=== PATIENT | male | born 1945 | race Two or more races ===

== ENCOUNTER 2024-02-12 13:43 | Emergency (ER) | payer OTHER, SELFPAY ==
[2024-02-12 13:48] VITALS: BP 142/61
[2024-02-12 14:15] LABS: % Basophils 0.4 % (0-2); % Eosinophils 0.1 % (0-6); % Immature Granulocytes 0.5 % (0-0.5); % Lymphocytes 9.5 % (20.5-51.1); % Monocytes 7.6 % (1.7-9.3); % Neutrophils 81.9 % (42.2-75.2); Absolute Basophils 0.1 10^3/uL (0-0.2); Absolute Immature Granulocytes 0.1 10^3/uL (0-0.05); Absolute Lymphocytes 1.2 10^3/uL (1.2-3.4); Absolute Neutrophils 10.6 10^3/uL (1.4-6.5); Hematocrit 42.2 % (39.0-52.0); Mean Corp Hgb Conc. 33.2 g/dL (33.0-37.0); Mean Corpuscular Hgb 28.3 pg (27.0-31.0); Mean Corpuscular Volume 85.3 fL (80.0-94.0); Mean Platelet Volume 9.7 fL (7.4-10.4); Nucleated Red Blood Cells % 0 % (-); Platelet Count 281 10^3/uL (130-400); Red Blood Cell Count 4.95 10^6/uL (4.70-6.10); Red Cell Dist. Width 13.6 % (11.5-14.5); White Blood Cell Count 12.9 10^3/uL (4.8-10.8)
[2024-02-12 14:39] LABS: AST (SGOT) 30 U/L (17-59); Albumin 4.4 g/dl (3.5-5.0); Alkaline Phosphatase 75 U/L (38-126); Blood Urea Nitrogen 40 mg/dl (9-20); Calcium 9.7 mg/dl (8.4-10.2); Carbon Dioxide 19 mmol/L (22-30); Chloride 101 mmol/L (98-107); Glucose 230 mg/dl (70-99); Lipase 81 U/L (23-300); Sodium 138 mmol/L (135-145); Total Bilirubin 0.8 mg/dl (0.2-1.3); Total Protein 7.5 g/dl (6.3-8.2); eGFR 47.06
[2024-02-12 15:16] LABS: ALT (SGPT) 39 U/L (0-50)
[2024-02-12 15:34] VITALS: BMI 25.9
[2024-02-12 15:35] VITALS: BP 136/62
[2024-02-12] MEDS: NSS 1000 IV (15:50)
[2024-02-12 16:00] VITALS: BP 125/59
--- NOTE | 2024-02-12 16:19 | ED.GENMED ---
History of Present Illness
General
Chief Complaint: Weakness
Time Seen by Provider: 02/12/24 14:51
History of Present Illness
History of Present Illness:
78-year-old male with history of hypertension and hyperlipidemia presents to the emergency department for evaluation of weakness and slurred speech that began this morning. According to his daughter he was vomiting yesterday when he fell in the
bathroom, there was no reported loss of consciousness. He did have some stool incontinence and continued to vomit throughout the night. Went to his primary care physician this morning and was noted to have slurred speech thus was deferred to the
emergency department. According to his daughter his speech has resolved here and he appears to look much better. Patient denies any abdominal pain
Review of Systems
Review of Systems
Allergies reviewed?: Yes
All Other Systems: ROS reviewed and negative except as documented in HPI and ROS
Phy Exam
Physical Exam
Physical Exam:
GEN: Well appearing, NAD, WDWN
HEENT: Oral mucosa moist, no scleral icterus
Cardiac: Regular rate
Lung: No respiratory distress, no tachypnea
Abdomen: Soft, nontender
MSK: No gross deformity or injuries
Skin: Good color, no pallor or jaundice, no rashes
Neuro: AO x3, moves all extremities freely. Oriented per daughter as the patient does not speak Qatari. Cranial nerves II through XII grossly intact
Psych: Calm, cooperative
Course
Orders/Labs/Results
Orders:
Orders
02/12/24 13:53
Electrocardiogram (*1) Urgent
Reason for Study: Fatigue / Weakness
CT Head W/o Iv Contrast Urgent
Comment:
Reason For Exam: fall, slurred speech
02/12/24 13:54
EKG- Treatment ONCE
02/12/24 14:05
Complete Blood Count/With Diff Urgent
Comprehensive Metabolic Panel Urgent
Lipase Urgent
02/12/24 15:49
0.9% Sodium Chloride 1000 ml [Nss] 1,000 ml IV BOLUS
Abnormal Lab Results
02/12/24
14:05
WBC 12.9 H 10^3/uL
(4.8-10.8)
Abs Immat Gran (auto) 0.1 H 10^3/uL
(0-0.05)
Absolute Neuts (auto) 10.6 H 10^3/uL
(1.4-6.5)
Absolute Monos (auto) 1.0 H 10^3/uL
(0.1-0.6)
Neutrophils % 81.9 H %
(42.2-75.2)
Lymphocytes % 9.5 L %
(20.5-51.1)
Carbon Dioxide 19 L mmol/L
(22-30)
BUN 40 H mg/dl
(9-20)
Creatinine 1.5 H mg/dL
(0.7-1.3)
Glucose 230 H mg/dl
(70-99)
02/12/24 14:05
02/12/24 14:05
Vital Signs
Initial and Last Documented VS:
Initial Vital Signs
Temp Pulse Resp BP Pulse Ox
98.4 F 98 16 142/61 98
02/12/24 13:48 02/12/24 13:48 02/12/24 13:48 02/12/24 13:48 02/12/24 13:48
Last Documented Vital Signs
Temp Pulse Resp BP Pulse Ox
98.4 F 85 26 125/59 96
02/12/24 13:48 02/12/24 16:45 02/12/24 15:45 02/12/24 16:00 02/12/24 16:45
MDM/Problems Addressed
MDM/Problems Addressed:
Likely self-limited viral syndrome, CT of the head was obtained primarily on the basis of his fall yesterday and this shows no hemorrhage or skull fracture. He is clinically well with unremarkable labs and was tolerating copious amounts of p.o.
fluids and food in the emergency department that difficulty. Discussed supportive care and return parameters. Do not suspect CVA, I suspect the slurred speech was transient metabolic encephalopathy secondary to dehydration
*Critical Care Note
Total Time (30-74mins, 75-104mins- exclusive of procedures): Not Applicable
ED Attending Note
-
Portions of this chart may have been created with voice recognition software.� Occasional wrong word or��sound alike� substitutions may have occurred due to the inherent limitations of voice recognition software.
Discharge Plan
Departure
Patient Disposition: Home (Routine Discharge)
Date of Disposition: 02/12/24
Time of Disposition: 16:46
Patient with high blood pressure during this ER visit?: No
Discharge Problem:
Nausea and vomiting
Instructions: Viral gastroenteritis in adults
Referrals:
RYDER FRANCO CRNP [Family Provider] -
Activity Restrictions/Additional Instructions:
If you have diarrhea lasting >5 days, stool testing would be suggested to determine if you need antibiotics for a bacterial infection
Interventions
Interventions:
*Risk Screen - Suicide Last Done: 02/12/24 16:43
*General Assessment Last Done: 02/12/24 16:53
*Neglect/Abuse Screening Last Done: 02/12/24 16:43
ED- Fall Risk Assessment Last Done: 02/12/24 16:53
*ED COVID-19 Vaccine History Last Done: 02/12/24 16:53
*Nursing Disposition Last Done: 02/12/24 16:53
ED- Cardiac Assessment Last Done: 02/12/24 16:43
ED- Neurological Assessment Last Done: 02/12/24 16:43
ED- Pulmonary Assessment Last Done: 02/12/24 16:43
Discharge Date and Time
Discharge Date/Time: 02/12/24 17:00
Print Language: DOMINICAN
== END 2024-02-12 17:00 | disposition home or self-care (01) ==
LOC: EMR 13:43
PROVIDERS: EMERGENCY PHYSICIAN Emergency Medicine; FAMILY PHYSICIAN Nurse Practitioner Family
DX: R11.2 Nausea with vomiting, unspecified (principal); R47.81 Slurred speech; R53.1 Weakness; R15.9 Full incontinence of feces; W19.XXXA Unspecified fall, initial encounter; E78.5 Hyperlipidemia, unspecified; I10 Essential (primary) hypertension
CPT/HCPCS: 99284; 96360; 70450; 80053; 83690; 85025; 93005